=== PATIENT | male | born 2000 | race Caucasian/White ===

== ENCOUNTER 2021-03-02 15:16 | Outpatient (CLI) | payer OTHER ==
--- NOTE | 2021-03-02 18:09 | XRAY Report ---
PROCEDURE: Chest 2 View X-Ray INDICATIONS: CHEST PX TECHNIQUE: 2 view(s) of the chest. COMPARISON: None. FINDINGS: Surgical changes and devices: None. Lungs and pleura: No pleural effusions or pneumothorax. Lungs are clear. Mediastinum: Mediastinal contours are normal. Heart size is normal. Bones and chest wall: No suspicious bony abnormalities. Soft tissues appear unremarkable. IMPRESSION: Normal. Reviewed by: Shashank Storm MD on 03/02/2021 5:07 PM [facility] Approved by: Shashank Storm MD on 03/02/2021 5:07 PM HARRY Station ID: [id number]
== END 2021-03-02 23:59 | disposition home or self-care (01) ==
LOC: DI.N 15:16
PROVIDERS: ATTEND Family Medicine
DX: R07.9 Chest pain, unspecified (principal)